=== PATIENT | female | born 1975 | race Caucasian/White ===

== ENCOUNTER 2018-03-01 16:26 | Emergency (ER) | payer OTHER ==
[2018-03-01] MEDS ORDERED: Ketorolac 60 MG/2 ML SDV IM ONE (17:00)
[2018-03-01] MEDS ORDERED: Cyclobenzaprine 10 MG Tab PO ONE (17:00)
--- NOTE | 2018-03-01 17:05 | EDM.PDOC ---
ED HPI GENERAL MEDICAL PROBLEM - General Chief Complaint: Lower Extremity Injury/Pain Stated Complaint: RT HIP PAIN, DOWN THE LEG, TINGLY TOES Time Seen by Provider: 03/01/18 16:53 Source of Information: Reports: Patient, RN Notes Reviewed History Limitations: Reports: No Limitations - History of Present Illness INITIAL COMMENTS - FREE TEXT/NARRATIVE: 42-year-old female presents emergency department day complaint of pain low back hip area she does have chronic issues in this area recently went to physical therapy after physical therapy the pain has been exacerbated has numbness and tingling in her right toe difficulty with ambulation Right Hip Pain Score (Numeric/FACES): 7 Lower Back Pain Score (Numeric/FACES): 4 - Related Data Allergies Allergy/AdvReac Type Severity Reaction Status Date / Time Sulfa (Sulfonamide Allergy Facial Verified 03/01/18 16:39 Antibiotics) Swelling sumatriptan [From Imitrex] Allergy Other Verified 03/01/18 16:39 Home Meds: Home Meds Cyclobenzaprine [Flexeril] 10 mg PO TID PRN #15 tablet 03/01/18 [Rx] Past Medical History HEENT History: Reports: Impaired Vision Cardiovascular History: Reports: Heart Murmur Gastrointestinal History: Reports: Colon Polyp, Hemorrhoids, Hiatal Hernia Musculoskeletal History: Reports: Arthritis, Back Pain, Chronic Neurological History: Reports: Migraines Psychiatric History: Reports: Anxiety - Infectious Disease History Infectious Disease History: Reports: Chicken Pox - Past Surgical History Head Surgeries/Procedures: Reports: None HEENT Surgical History: Reports: Adenoidectomy Cardiovascular Surgical History: Reports: None GI Surgical History: Reports: Appendectomy, Colonoscopy Neurological Surgical History: Reports: None Dermatological Surgical History: Reports: None Social & Family History - Tobacco Use Smoking Status *Q: Current Every Day Smoker Years of Tobacco use: 30 Packs/Tins Daily: 0.5 Used Tobacco, but Quit: No Second Hand Smoke Exposure: No - Caffeine Use Caffeine Use: Reports: Coffee, Soda - Recreational Drug Use Recreational Drug Use: No Review of Systems - Review of Systems Review Of Systems: See Below Constitutional: Reports: No Symptoms Musculoskeletal: Reports: Leg Pain Neurological: Reports: Tingling ED EXAM, GENERAL - Physical Exam Exam: See Below Free Text/Narrative:: Tenderness over the low back but Rx region right side she has difficulty ambulating favors her left Exam Limited By: No Limitations General Appearance: Alert, Mild Distress Course - Vital Signs Last Recorded V/S: Last Vital Signs Temp 97.5 F 03/01/18 16:43 Pulse 87 03/01/18 16:43 Resp 16 03/01/18 16:43 BP 136/85 03/01/18 16:43 Pulse Ox 96 03/01/18 16:43 - Orders/Labs/Meds Orders: Active Orders 24 hr Category Date Time Status Cyclobenzaprine [Flexeril] Med 03/01/18 17:00 Once 10 mg PO ONETIME ONE Ketorolac [Toradol] Med 03/01/18 17:00 Once 60 mg IM ONETIME ONE Medication Orders Cyclobenzaprine HCl (Flexeril) 10 mg PO ONETIME ONE Stop: 03/01/18 17:01 Ketorolac Tromethamine (Toradol) 60 mg IM ONETIME ONE Stop: 03/01/18 17:01 Meds: Medications Generic Name Dose Route Start Last Admin Trade Name Freq PRN Reason Stop Dose Admin Cyclobenzaprine HCl 10 mg 03/01/18 17:00 Flexeril PO 03/01/18 17:01 ONETIME ONE Ketorolac Tromethamine 60 mg 03/01/18 17:00 Toradol IM 03/01/18 17:01 ONETIME ONE Departure - Departure Time of Disposition: 17:04 Disposition: Home, Self-Care 01 Condition: Good Clinical Impression: Right hip pain - Discharge Information Prescriptions: Cyclobenzaprine [Flexeril] 10 mg PO TID PRN #15 tablet PRN Reason: Pain Referrals: PCP,None [Primary Care Provider] - Forms: ED Department Discharge, ED Return to Work/School Form Additional Instructions: Continue using your meloxicam, try the Flexeril as needed for muscle spasm and pain, your prescriptions have been sent to [facility], Please followup with your primary care provider in 3-5 days if not better, please call return to the emergency department with worsening of symptoms. - My Orders Last 24 Hours: My Active Orders 03/01/18 17:00 Cyclobenzaprine [Flexeril] 10 mg PO ONETIME ONE Ketorolac [Toradol] 60 mg IM ONETIME ONE - Assessment/Plan Last 24 Hours: My Active Orders 03/01/18 17:00 Cyclobenzaprine [Flexeril] 10 mg PO ONETIME ONE Ketorolac [Toradol] 60 mg IM ONETIME ONE Plan: Assessment Acuity = acute on chronic Site and laterality = exacerbation left hip pain Etiology = secondary to physical therapy Manifestations = none Location of injury = Home Lab values = none Plan She was provided Toradol and Flexeril in the emergency department with some relief prescription written for Flexeril 1 tab by mouth 3 times a day when necessary total #15 follow-up primary care in 3-5 days if not better prescription sent to [facility] This note was dictated using upad voice recognition software please call with any questions on syntax or grammar.
== END 2018-03-01 17:15 | disposition home or self-care (01) ==
LOC: JP.ED 16:26
DX: G89.29 Other chronic pain (principal); M25.551 Pain in right hip; R20.0 Anesthesia of skin; R20.2 Paresthesia of skin; F17.210 Nicotine dependence, cigarettes, uncomplicated; Z88.2 Allergy status to sulfonamides
CPT/HCPCS: 96372; 99282; 99283; A9270; J1885

== ENCOUNTER 2018-09-01 05:26 | Emergency (ER) | payer OTHER ==
--- NOTE | 2018-09-01 06:14 | EDM.PDOC ---
ED HPI GENERAL MEDICAL PROBLEM - General Chief Complaint: Upper Extremity Injury/Pain Stated Complaint: SMASHED LEFT HAND Time Seen by Provider: 09/01/18 05:53 Source of Information: Reports: Patient History Limitations: Reports: No Limitations - History of Present Illness INITIAL COMMENTS - FREE TEXT/NARRATIVE: Last night this lady was helping another individual move a sofa. The patient was walking I cords when her hand hit a wooden post so this crushed her left hand between the sofa and post. Afterwards she was able to use her hand although it was painful. This morning it's very swollen stiff and hurts more. She is worried it may be broken. left hand Pain Score (Numeric/FACES): 7 - Related Data Allergies Allergy/AdvReac Type Severity Reaction Status Date / Time Sulfa (Sulfonamide Allergy Facial Verified 09/01/18 05:49 Antibiotics) Swelling sumatriptan [From Imitrex] Allergy Other Verified 09/01/18 05:49 Home Meds: Home Meds Meloxicam 7.5 mg PO DAILY 03/01/18 [History] Past Medical History HEENT History: Reports: Impaired Vision Cardiovascular History: Reports: Heart Murmur Gastrointestinal History: Reports: Colon Polyp, Hemorrhoids, Hiatal Hernia Musculoskeletal History: Reports: Arthritis, Back Pain, Chronic Neurological History: Reports: Migraines Psychiatric History: Reports: Anxiety - Infectious Disease History Infectious Disease History: Reports: Chicken Pox - Past Surgical History Head Surgeries/Procedures: Reports: None HEENT Surgical History: Reports: Adenoidectomy Cardiovascular Surgical History: Reports: None GI Surgical History: Reports: Appendectomy, Colonoscopy Neurological Surgical History: Reports: None Musculoskeletal Surgical History: Reports: None Social & Family History - Family History Family Medical History: Noncontributory - Tobacco Use Smoking Status *Q: Current Every Day Smoker Years of Tobacco use: 32 Packs/Tins Daily: 0.5 Second Hand Smoke Exposure: Yes - Caffeine Use Caffeine Use: Reports: Coffee - Recreational Drug Use Recreational Drug Use: No Review of Systems - Review of Systems Review Of Systems: ROS reveals no pertinent complaints other than HPI. ED EXAM, GENERAL - Physical Exam Exam: See Below Exam Limited By: No Limitations General Appearance: Alert, WD/WN, No Apparent Distress Extremities: Other (Left hand shows mild swelling in the area of the third through fifth MCP joints. A little bit of swelling onto the hand and the proximal phalanges of the third through fifth fingers. There is limited range of motion due to pain and swelling but no deformity. Neurovascular tendon all appears to be intact) Course - Vital Signs Last Recorded V/S: Last Vital Signs Temp 36.1 C 09/01/18 05:46 Pulse 77 09/01/18 05:46 Resp 14 09/01/18 05:46 BP 127/86 09/01/18 05:46 Pulse Ox 97 09/01/18 05:46 - Orders/Labs/Meds Orders: Active Orders 24 hr Category Date Time Status Hand Comp Min 3V Lt [CR] Stat Exams 09/01/18 05:59 Taken - Radiology Interpretation Free Text/Narrative:: X-ray the left hand shows no fracture or dislocation Departure - Departure Time of Disposition: 06:12 Disposition: Home, Self-Care 01 Condition: Fair Clinical Impression: Contusion of left hand - Discharge Information Referrals: PCP,None [Primary Care Provider] - Forms: ED Department Discharge Additional Instructions: The hand is just bruised. Nothing is broken. It will help to keep your hand elevated as much as you can the keep it moving at least a little bit. Ice may still help. It should be better over the next 2 or 3 days. You may use it as tolerated - My Orders Last 24 Hours: My Active Orders 09/01/18 05:59 Hand Comp Min 3V Lt [CR] Stat - Assessment/Plan Last 24 Hours: My Active Orders 09/01/18 05:59 Hand Comp Min 3V Lt [CR] Stat
--- NOTE | 2018-09-01 06:22 | CRLCR ---
HISTORY: Left hand trauma. TECHNIQUE: Three views of the left hand. COMPARISON: No prior. FINDINGS: There is no acute fracture or malalignment. No significant joint space narrowing. No radiopaque foreign body or soft tissue gas. Small focus of chronic cystic or erosive change involving the 3rd metacarpal head with a thin sclerotic margin. IMPRESSION: No acute fracture or malalignment. Dictated by Wally Tao MD @ 09/01/2018 6:20:45 AM Dictated by: Wally Tao MD @ 09/01/2018 06:20:48 (Electronically Signed)
== END 2018-09-01 06:28 | disposition home or self-care (01) ==
LOC: JP.ED 05:26
DX: S60.222A Contusion of left hand, initial encounter (principal); F17.210 Nicotine dependence, cigarettes, uncomplicated; F41.9 Anxiety disorder, unspecified; Z88.2 Allergy status to sulfonamides; Z88.8 Allergy status to other drugs, medicaments and biological substances; Z79.899 Other long term (current) drug therapy; W23.0XXA Caught, crushed, jammed, or pinched between moving objects, initial encounter
CPT/HCPCS: 73130-LT; 99282; 99283-25

== ENCOUNTER 2019-02-03 00:55 | Emergency (ER) | payer OTHER ==
[2019-02-03] MEDS ORDERED: Baclofen 10 MG Tab PO ONE (01:44)
[2019-02-03] MEDS ORDERED: Ketorolac 60 MG/2 ML SDV IM ONE (01:44)
--- NOTE | 2019-02-03 01:50 | EDM.PDOC ---
ED HPI GENERAL MEDICAL PROBLEM - General Chief Complaint: Back Pain or Injury Stated Complaint: LOWER BACK PAIN Time Seen by Provider: 02/03/19 01:45 Source of Information: Reports: Patient History Limitations: Reports: No Limitations - History of Present Illness INITIAL COMMENTS - FREE TEXT/NARRATIVE: pt has a known history of disc disease and did have a MRI in 2017. She is followed at the [place]. She was at work tonight and developed acute pain in the low back with pain radiating down the rt leg. She did have tingling in both feet. Onset: Other ( she has had some problems for several days but it got very bad today. ) Location: Reports: Back, Lower Extremity, Right, Radiates to back Pain Score (Numeric/FACES): 8 - Related Data Allergies Allergy/AdvReac Type Severity Reaction Status Date / Time Sulfa (Sulfonamide Allergy Facial Verified 02/03/19 01:14 Antibiotics) Swelling sumatriptan [From Imitrex] Allergy Other Verified 02/03/19 01:14 Home Meds: Home Meds Meloxicam 7.5 mg PO DAILY 03/01/18 [History] Past Medical History HEENT History: Reports: Impaired Vision Cardiovascular History: Reports: Heart Murmur Gastrointestinal History: Reports: Colon Polyp, GERD, Hemorrhoids, Hiatal Hernia Musculoskeletal History: Reports: Arthritis, Back Pain, Chronic Neurological History: Reports: Migraines Psychiatric History: Reports: Anxiety - Infectious Disease History Infectious Disease History: Reports: Chicken Pox - Past Surgical History Head Surgeries/Procedures: Reports: None HEENT Surgical History: Reports: Adenoidectomy, Other (See Below) Other HEENT Surgeries/Procedures: nasal surgery x2 GI Surgical History: Reports: Appendectomy, Colonoscopy, EGD Neurological Surgical History: Reports: None Musculoskeletal Surgical History: Reports: None Dermatological Surgical History: Reports: None Social & Family History - Family History Family Medical History: Noncontributory - Tobacco Use Smoking Status *Q: Current Every Day Smoker Years of Tobacco use: 32 Packs/Tins Daily: 0.5 - Caffeine Use Caffeine Use: Reports: Coffee, Soda - Recreational Drug Use Recreational Drug Use: No ED ROS GENERAL - Review of Systems Review Of Systems: See Below Constitutional: Reports: No Symptoms HEENT: Reports: No Symptoms Respiratory: Reports: No Symptoms Cardiovascular: Reports: No Symptoms Endocrine: Reports: No Symptoms GI/Abdominal: Reports: No Symptoms : Reports: No Symptoms Musculoskeletal: Reports: Other (pain in the lower back radiating to the rt leg. ) Skin: Reports: No Symptoms Neurological: Reports: Tingling ED EXAM,LOWER BACK PAIN/INJURY - Physical Exam Exam: See Below Text/Narrative:: Pt arrived with pain in the lower back and it is radiating down the rt leg. Exam Limited By: No Limitations General Appearance: Alert, Moderate Distress Ears: Normal TMs Nose: Normal Inspection Throat/Mouth: Normal Inspection Head: Atraumatic Neck: Normal Inspection Respiratory/Chest: No Respiratory Distress Cardiovascular: Regular Rate, Rhythm GI/Abdominal: Soft, Non-Tender (Female) Exam: Deferred Rectal (Female) Exam: Deferred Back Exam: Normal Inspection, Muscle Spasm, Paraspinal Tenderness Extremities: Normal Inspection Neurological: Alert, Oriented x 3 Psychiatric: Normal Affect Course - Vital Signs Last Recorded V/S: Last Vital Signs Temp 36.6 C 02/03/19 01:16 Pulse 80 02/03/19 01:16 Resp 18 02/03/19 01:16 BP 124/87 02/03/19 01:16 Pulse Ox 96 02/03/19 01:16 - Orders/Labs/Meds Meds: Medications Discontinued Medications Generic Name Dose Route Start Last Admin Trade Name Freq PRN Reason Stop Dose Admin Hydrocodone Bitart/Acetaminophen 1 tab 02/03/19 01:51 02/03/19 01:57 Bowman 325-5 Mg PO 02/03/19 01:52 1 tab ONETIME ONE Administration Baclofen 10 mg 02/03/19 01:44 02/03/19 01:50 Lioresal PO 02/03/19 01:45 10 mg ONETIME ONE Administration Ketorolac Tromethamine 60 mg 02/03/19 01:44 02/03/19 01:50 Toradol IM 02/03/19 01:45 60 mg ONETIME ONE Administration - Re-Assessments/Exams Free Text/Narrative Re-Assessment/Exam: 02/03/19 01:50 pt was given torodol 60 mg im, baclofen 10 mg and norco 5/325 she did have relief. 02/03/19 02:26 Departure - Departure Time of Disposition: 02:27 Disposition: Home, Self-Care 01 Condition: Fair Clinical Impression: Low back pain - Discharge Information Referrals: PCP,None [Primary Care Provider] - Forms: ED Department Discharge Care Plan Goals: moist warm packs to low back , rest, flexeril 10 mg bid, motrin 600mg bid for 3 -4 day, push fluids, norco 5/325 q6h prn for severe pain # 10
[2019-02-03] MEDS ORDERED: Acetaminophen/HYDROcodone 325-5 MG Tab PO ONE (01:51)
== END 2019-02-03 02:35 | disposition home or self-care (01) ==
LOC: JP.ED 00:55
DX: M54.5 Low back pain (principal); F17.210 Nicotine dependence, cigarettes, uncomplicated; Z88.2 Allergy status to sulfonamides; Z88.8 Allergy status to other drugs, medicaments and biological substances; Z79.899 Other long term (current) drug therapy
CPT/HCPCS: 96372; 99283; A9270; J1885

== ENCOUNTER 2019-05-22 21:17 | Emergency (ER) | payer OTHER ==
--- NOTE | 2019-05-22 21:49 | EDM.PDOC ---
ED HPI GENERAL MEDICAL PROBLEM - General Chief Complaint: Lower Extremity Injury/Pain Stated Complaint: RI KNEE HURTS NOT AN ACCIDENT Time Seen by Provider: 05/22/19 21:35 Source of Information: Reports: Patient, Old Records, RN - History of Present Illness INITIAL COMMENTS - FREE TEXT/NARRATIVE: 43 yo female here with several days of L knee pain not associated with injury. Has not been to her primary. Wants a note to be off work. 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) Right Knee Pain Score (Numeric/FACES): 6 - Related Data Allergies Allergy/AdvReac Type Severity Reaction Status Date / Time Sulfa (Sulfonamide Allergy Facial Verified 02/03/19 01:14 Antibiotics) Swelling sumatriptan [From Imitrex] Allergy Other Verified 02/03/19 01:14 Home Meds: Home Meds NK [No Known Home Meds] 05/22/19 [History] Past Medical History HEENT History: Reports: Impaired Vision Cardiovascular History: Reports: Heart Murmur Gastrointestinal History: Reports: Colon Polyp, GERD, Hemorrhoids, Hiatal Hernia Musculoskeletal History: Reports: Arthritis, Back Pain, Chronic Other Musculoskeletal History: knee pain Neurological History: Reports: Migraines Psychiatric History: Reports: Anxiety - Infectious Disease History Infectious Disease History: Reports: Chicken Pox - Past Surgical History Head Surgeries/Procedures: Reports: None HEENT Surgical History: Reports: Adenoidectomy, Other (See Below) Other HEENT Surgeries/Procedures: nasal surgery x2 GI Surgical History: Reports: Appendectomy, Colonoscopy, EGD Neurological Surgical History: Reports: None Musculoskeletal Surgical History: Reports: None Dermatological Surgical History: Reports: None Social & Family History - Family History Family Medical History: Noncontributory - Tobacco Use Smoking Status *Q: Current Every Day Smoker Years of Tobacco use: 32 Packs/Tins Daily: 0.5 - Caffeine Use Caffeine Use: Reports: Coffee, Soda Caffeine Use Comment: dr mckay daily - Recreational Drug Use Recreational Drug Use: No Review of Systems - Review of Systems Review Of Systems: See Below Constitutional: Reports: No Symptoms Musculoskeletal: Reports: Joint Pain (L medial knee pain, no effusion or ligamentous laxity). Denies: Joint Swelling Skin: Reports: No Symptoms Neurological: Reports: No Symptoms ED EXAM, GENERAL - Physical Exam Exam: See Below General Appearance: Alert, WD/WN, No Apparent Distress Extremities: Normal Inspection, Normal Range of Motion, No Pedal Edema, Other ( no ligament laxity. Medial joint line pain. No effusion.). No: Non-Tender, Joint Swelling, Limited Range of Motion, Increased Warmth Neurological: Alert, Oriented, CN II-XII Intact, Normal Cognition, No Motor/ Sensory Deficits Psychiatric: Normal Affect, Normal Mood Skin Exam: Warm, Dry, Intact, Normal Color, No Rash Course - Vital Signs Text/Narrative:: Immobilizer placed. Last Recorded V/S: Last Vital Signs Temp 37.4 C 05/22/19 21:35 Pulse 91 05/22/19 21:35 Resp 18 05/22/19 21:35 BP 128/82 05/22/19 21:35 Pulse Ox 97 05/22/19 21:35 Departure - Departure Time of Disposition: 21:50 Disposition: Home, Self-Care 01 Condition: Fair Clinical Impression: Left knee pain Qualifiers: Chronicity: unspecified Qualified Code(s): M25.562 - Pain in left knee - Discharge Information *PRESCRIPTION DRUG MONITORING PROGRAM REVIEWED*: No *COPY OF PRESCRIPTION DRUG MONITORING REPORT IN PATIENT DESTINY: No Instructions: Knee Pain, Adult, [id number] Referrals: PCP,None [Primary Care Provider] - Additional Instructions: Use immobilizer except when bathing or sleeping. F/U with orthopedics. Ibuprofen and/or acetaminophen as needed. Sepsis Event Note - Evaluation Sepsis Screening Result: No Definite Risk - Focused Exam Vital Signs: Vital Signs Temp Pulse Resp BP Pulse Ox 05/22/19 21:35 37.4 C 91 18 128/82 97 05/22/19 21:32 37.4 C 91 18 128/82 97 Date Exam was Performed: 05/22/19 Time Exam was Performed: 21:44
== END 2019-05-22 22:14 | disposition home or self-care (01) ==
LOC: JP.ED 21:17
DX: M25.562 Pain in left knee (principal); M19.90 Unspecified osteoarthritis, unspecified site; F17.210 Nicotine dependence, cigarettes, uncomplicated; Z88.2 Allergy status to sulfonamides; Z88.8 Allergy status to other drugs, medicaments and biological substances
CPT/HCPCS: 99283

== ENCOUNTER 2019-06-11 18:46 | Emergency (ER) | payer OTHER ==
--- NOTE | 2019-06-11 19:40 | EDM.PDOC ---
ED HPI GENERAL MEDICAL PROBLEM - General Chief Complaint: Respiratory Problem Stated Complaint: COUGH, CHEST CONGESTION, SOB, FEVER Time Seen by Provider: 06/11/19 19:15 Source of Information: Reports: Patient History Limitations: Reports: No Limitations - History of Present Illness INITIAL COMMENTS - FREE TEXT/NARRATIVE: 43-year-old female with a variety of cold-like symptoms for the past week, generalized body aches, cough, sore throat, runny nose and headache. She gets dyspneic with activity. No nausea or vomiting, no abdominal or urologic symptoms. Onset: Gradual Duration: Day(s): (7 days) Associated Symptoms: Reports: Cough, Fever/Chills, Malaise, Shortness of Breath (Especially with activity), Other (Also complaining of ear pain and throat pain) Generalized Pain Score (Numeric/FACES): 8 - Related Data Allergies Allergy/AdvReac Type Severity Reaction Status Date / Time Sulfa (Sulfonamide Allergy Facial Verified 06/11/19 19:11 Antibiotics) Swelling sumatriptan [From Imitrex] Allergy Other Verified 06/11/19 19:11 Home Meds: Home Meds NK [No Known Home Meds] 05/22/19 [History] Past Medical History HEENT History: Reports: Impaired Vision Cardiovascular History: Reports: Heart Murmur Respiratory History: Reports: None Gastrointestinal History: Reports: Colon Polyp, GERD, Hemorrhoids, Hiatal Hernia Genitourinary History: Reports: None 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: Musculoskeletal History: Reports: Arthritis, Back Pain, Chronic Other Musculoskeletal History: knee pain Neurological History: Reports: Migraines Psychiatric History: Reports: Anxiety Endocrine/Metabolic History: Reports: None Hematologic History: Reports: None Immunologic History: Reports: None Oncologic (Cancer) History: Reports: None Dermatologic History: Reports: None - Infectious Disease History Infectious Disease History: Reports: Chicken Pox - Past Surgical History Head Surgeries/Procedures: Reports: None HEENT Surgical History: Reports: Adenoidectomy, Other (See Below) Other HEENT Surgeries/Procedures: nasal surgery x2 GI Surgical History: Reports: Appendectomy, Colonoscopy, EGD Neurological Surgical History: Reports: None Musculoskeletal Surgical History: Reports: None, Hip Replacement Dermatological Surgical History: Reports: None Social & Family History - Family History Family Medical History: Noncontributory - Tobacco Use Smoking Status *Q: Current Every Day Smoker Years of Tobacco use: 29 Packs/Tins Daily: 0.5 Used Tobacco, but Quit: No Second Hand Smoke Exposure: Yes - Caffeine Use Caffeine Use: Reports: Coffee, Soda Caffeine Use Comment: dr mckay daily - Alcohol Use Days Per Week of Alcohol Use: 0 - Recreational Drug Use Recreational Drug Use: No ED ROS GENERAL - Review of Systems Review Of Systems: See Below Constitutional: Reports: Fever, Chills, Malaise HEENT: Reports: Eye Pain, Throat Pain Respiratory: Reports: Shortness of Breath, Cough. Denies: Sputum GI/Abdominal: Denies: Abdominal Pain, Nausea, Vomiting Musculoskeletal: Reports: Other (Aches all over, generalized muscle pain) Skin: Reports: No Symptoms Neurological: Reports: Headache Psychiatric: Reports: No Symptoms ED EXAM, GENERAL - Physical Exam Exam: See Below Exam Limited By: No Limitations General Appearance: Alert, No Apparent Distress Ears: Normal TMs Throat/Mouth: Normal Inspection Head: Atraumatic Neck: No: Lymphadenopathy (R), Lymphadenopathy (L) Respiratory/Chest: No Respiratory Distress, Wheezing (A few expiratory wheezes are heard especially in the bases bilaterally and more pronounced when coughing) Cardiovascular: Regular Rate, Rhythm GI/Abdominal: Non-Tender Extremities: No: Pedal Edema Neurological: Alert, Oriented Psychiatric: Normal Affect, Normal Mood Skin Exam: Warm, Dry Course - Vital Signs Last Recorded V/S: Last Vital Signs Temp 98.4 F 06/11/19 19:18 Pulse 74 06/11/19 19:18 Resp 16 06/11/19 19:18 BP 140/78 06/11/19 19:18 Pulse Ox 93 L 06/11/19 19:18 - Orders/Labs/Meds Orders: Active Orders 24 hr Category Date Time Status CULTURE STREP A CONFIRMATION [RM] Routine Lab 06/11/19 19:28 Results STREP SCRN A RAPID W CULT CONF [RM] Routine Lab 06/11/19 19:28 Results - Re-Assessments/Exams Free Text/Narrative Re-Assessment/Exam: 06/11/19 19:40 A 2 view chest x-ray will be obtained as well as a strep and influenza antigens. 06/11/19 20:00 Strep and influenza are negative, chest x-ray shows 1 small possible area of infiltrate in the right lateral chest, upper lobe. She will be placed on Zithromax but also advised that it is likely she has a viral component which will have to run its course. No work today or tomorrow. Recheck in 3 to 5 days if not improving satisfactorily. Departure - Departure Time of Disposition: 20:12 Disposition: Home, Self-Care 01 Clinical Impression: Bronchitis - Discharge Information Instructions: Acute Bronchitis, Adult, [id number] Referrals: PCP,None [Primary Care Provider] - Forms: ED Department Discharge Care Plan Goals: Take Zithromax as prescribed, rest and get plenty of fluids. Increase activity as tolerated and consider rechecking in 3 to 5 days if not improving satisfactorily. Sepsis Event Note - Evaluation Sepsis Screening Result: No Definite Risk - Focused Exam Vital Signs: Vital Signs Temp Pulse Resp BP Pulse Ox 06/11/19 19:18 98.4 F 74 16 140/78 93 L 06/11/19 19:10 98.4 F 74 22 H 140/78 93 L Date Exam was Performed: 06/11/19 Time Exam was Performed: 22:23 - My Orders Last 24 Hours: My Active Orders 06/11/19 19:28 CULTURE STREP A CONFIRMATION [RM] Routine STREP SCRN A RAPID W CULT CONF [] Routine - Assessment/Plan Last 24 Hours: My Active Orders 06/11/19 19:28 CULTURE STREP A CONFIRMATION [] Routine STREP SCRN A RAPID W CULT CONF [] Routine
--- NOTE | 2019-06-11 20:03 | CRLCR ---
Indication: Dyspnea. Technique: PA and lateral views the chest. Comparison: None Findings: Subtle right upper lobe infiltrate is identified. The heart is normal in size. No pleural effusion or pneumothorax is identified. Impression: Subtle right upper lobe infiltrate. Repeat study is recommended to ensure complete resolution Dictated by Sandrine Zendejas MD @ Jun 11 2019 8:02PM Signed by Dr. Sandrine Zendejas @ Jun 11 2019 8:02PM
== END 2019-06-11 20:12 | disposition home or self-care (01) ==
LOC: JP.ED 18:46
DX: J40 Bronchitis, not specified as acute or chronic (principal); F17.210 Nicotine dependence, cigarettes, uncomplicated; Z90.49 Acquired absence of other specified parts of digestive tract; Z88.2 Allergy status to sulfonamides; Z88.8 Allergy status to other drugs, medicaments and biological substances
CPT/HCPCS: 71046; 87081; 87804; 87804-59; 87880-QW; 99285-25

== ENCOUNTER 2020-08-03 18:11 | Emergency (ER) | payer BC ==
[2020-08-03] MEDS ORDERED: Albuterol/Ipratropium 3.0-0.5 MG/3 ML Neb Soln NEB ONE (18:56)
--- NOTE | 2020-08-03 19:02 | EDM.PDOC ---
ED HPI GENERAL MEDICAL PROBLEM - General Chief Complaint: Respiratory Problem Stated Complaint: NOT FEELING WELL,FEELS LIKE SOMTHING IS IN CHEST Time Seen by Provider: 08/03/20 18:39 Source of Information: Reports: Patient History Limitations: Reports: No Limitations - History of Present Illness INITIAL COMMENTS - FREE TEXT/NARRATIVE: Mireya is a 44-year-old female presenting to the ED for evaluation of increasing shortness of breath, cough, and chest congestion. Patient states over the last week she has had increasing upper respiratory tract symptoms with nasal congestion and rhinorrhea. By the middle of the week she started having some chest congestion with a productive cough. And now she is experiencing some increased dyspnea and cough. The patient is prone to bronchitis and was treated for acute bronchitis in May 2020. She is a smoker and has a history of smoking induced asthma which was diagnosed when she was in the [employer]. Despite this she continues to smoke although she is motivated to quit. She denies any fever or chills, nausea or vomiting, diarrhea or constipation. She has had no abdominal pain. She is experiencing some low back pain from the repeated coughing and does have a history of chronic back issues. - Related Data Allergies Allergy/AdvReac Type Severity Reaction Status Date / Time Sulfa (Sulfonamide Allergy Facial Verified 08/03/20 18:19 Antibiotics) Swelling sumatriptan [From Imitrex] Allergy Other Verified 08/03/20 18:19 Home Meds: Home Meds NK [No Known Home Meds] 08/03/20 [History] Past Medical History HEENT History: Reports: Impaired Vision Cardiovascular History: Reports: Heart Murmur Respiratory History: Reports: None Gastrointestinal History: Reports: Colon Polyp, GERD, Hemorrhoids, Hiatal Hernia Genitourinary History: Reports: None REGISTRY NURSE History: Reports: Musculoskeletal History: Reports: Other (See Below) Other Musculoskeletal History: right knee pain. left knee pain. right foot pain Neurological History: Reports: Migraines Psychiatric History: Reports: Anxiety Endocrine/Metabolic History: Reports: None Hematologic History: Reports: None Immunologic History: Reports: None Oncologic (Cancer) History: Reports: None Dermatologic History: Reports: None - Infectious Disease History Infectious Disease History: Reports: Chicken Pox - Past Surgical History Head Surgeries/Procedures: Reports: None HEENT Surgical History: Reports: Adenoidectomy, Other (See Below) Other HEENT Surgeries/Procedures: nasal surgery x2 Cardiovascular Surgical History: Reports: None GI Surgical History: Reports: Appendectomy, Colonoscopy, EGD Neurological Surgical History: Reports: None Musculoskeletal Surgical History: Reports: None Dermatological Surgical History: Reports: None Social & Family History - Family History Family Medical History: No Pertinent Family History - Tobacco Use Tobacco Use Status *Q: Current Every Day Tobacco User Years of Tobacco use: 32 Packs/Tins Daily: 0.2 - Caffeine Use Caffeine Use: Reports: Coffee Caffeine Use Comment: dr mckay daily ED ROS GENERAL - Review of Systems Review Of Systems: See Below Constitutional: Reports: No Symptoms HEENT: Reports: Rhinitis, Throat Pain, Other (Nasal drainage) Respiratory: Reports: Shortness of Breath, Cough, Sputum Cardiovascular: Reports: No Symptoms Endocrine: Reports: Fatigue GI/Abdominal: Reports: No Symptoms : Reports: No Symptoms Musculoskeletal: Reports: Back Pain (Cute on chronic low back pain from coughing) Skin: Reports: No Symptoms Neurological: Reports: No Symptoms Psychiatric: Reports: No Symptoms Hematologic/Lymphatic: Reports: No Symptoms Immunologic: Reports: No Symptoms ED EXAM, GENERAL - Physical Exam Exam: See Below Exam Limited By: No Limitations General Appearance: Alert, Mild Distress Eye Exam: Bilateral Eye: EOMI, PERRL Nose: Nasal Swelling, Nasal Drainage Throat/Mouth: Normal Inspection, Normal Lips, Normal Oropharynx, Normal Voice, No Airway Compromise Head: Atraumatic, Normocephalic Neck: Normal Inspection, Supple Respiratory/Chest: No Respiratory Distress, Wheezing (Scant bilateral wheezing) Cardiovascular: Normal Peripheral Pulses, Regular Rate, Rhythm, No Murmur Peripheral Pulses: 2+: Radial (L), Radial (R) GI/Abdominal: Normal Bowel Sounds, Soft, Non-Tender Extremities: Normal Inspection, Normal Range of Motion Neurological: Alert, Oriented, Normal Cognition, No Motor/Sensory Deficits Psychiatric: Normal Affect, Normal Mood Skin Exam: Warm, Dry, Intact, Normal Color Lymphatic: No Adenopathy Course - Vital Signs Last Recorded V/S: Last Vital Signs Temp 36.4 C 08/03/20 18:26 Pulse 85 08/03/20 18:26 Resp 14 08/03/20 18:26 BP 119/78 08/03/20 18:26 Pulse Ox 96 08/03/20 18:26 - Orders/Labs/Meds Orders: Active Orders 24 hr Category Date Time Status RT Aerosol Therapy [RC] ASDIRECTED Care 08/03/20 18:56 Active Chest 2V [CR] Stat Exams 08/03/20 18:39 Taken Labs: Laboratory Tests 08/03/20 08/03/20 Range/Units 18:57 18:57 WBC 6.6 (4.5-11.0) K/uL RBC 4.37 (3.30-5.50) M/uL Hgb 13.0 (12.0-15.0) g/dL Hct 39.8 (36.0-48.0) % MCV 91 (80-98) fL MCH 30 (27-31) pg MCHC 33 (32-36) % Plt Count 333 (150-400) K/uL Neut % (Auto) 54 (36-66) % Lymph % (Auto) 33 (24-44) % [place] % (Auto) 9 H (2-6) % Eos % (Auto) 3 (2-4) % Baso % (Auto) 1 (0-1) % C-Reactive Protein 0.61 H (0.0-0.3) mg/dL Meds: Medications Discontinued Medications Generic Name Dose Route Start Last Admin Trade Name Freq PRN Reason Stop Dose Admin Albuterol/Ipratropium 3 ml 08/03/20 18:56 08/03/20 19:01 Duoneb 3.0-0.5 Mg/3 Ml NEB 08/03/20 18:57 3 ml ONETIME ONE Administration - Re-Assessments/Exams Free Text/Narrative Re-Assessment/Exam: 08/03/20 19:38 I reviewed the labs and chest x-ray on the patient. She has a normal leukocyte count but has slight elevation of her CRP. Her chest x-ray does not show any acute infiltrates. She is a smoker and likely has chronic bronchiectasis. She was treated in May for acute bacterial bronchitis and I think it would be prudent to again repeat the course of antibiotics so we will place her on azithromycin Z-Jono. She is requested an albuterol inhaler which I will also prescribe that may offer her some relief of her shortness of breath. She is fairly motivated at this time to quit smoking and I have advised her to follow-up with her primary care provider to arrange for help with this. Indications return to the ED were discussed and at this time she is suitable for discharge in satisfactory condition. Departure - Departure Time of Disposition: 19:40 Disposition: Home, Self-Care 01 Clinical Impression: Acute bronchitis Qualifiers: Bronchitis organism: unspecified organism Qualified Code(s): J20.9 - Acute bronchitis, unspecified - Discharge Information *PRESCRIPTION DRUG MONITORING PROGRAM REVIEWED*: Not Applicable *COPY OF PRESCRIPTION DRUG MONITORING REPORT IN PATIENT DESTINY: Not Applicable Instructions: Acute Bronchitis, Adult, [id number] Referrals: PCP,None [Primary Care Provider] - Forms: ED Department Discharge Care Plan Goals: I have prescribed you an albuterol inhaler and azithromycin. Please take as directed. Should you develop any worsening shortness of breath, please return to the ED for reevaluation. Sepsis Event Note (ED) - Evaluation Sepsis Screening Result: No Definite Risk - Focused Exam Vital Signs: Vital Signs Temp Pulse Resp BP Pulse Ox 08/03/20 18:26 36.4 C 85 14 119/78 96 - Problem List & Annotations (1) Acute bronchitis SNOMED Code(s): 02644461 Code(s): J20.9 - ACUTE BRONCHITIS, UNSPECIFIED Status: Acute Priority: Medium Current Visit: Yes Qualifiers: Bronchitis organism: unspecified organism Qualified Code(s): J20.9 - Acute bronchitis, unspecified - Problem List Review Problem List Initiated/Reviewed/Updated: Yes - My Orders Last 24 Hours: My Active Orders 08/03/20 18:39 Chest 2V [CR] Stat 08/03/20 18:56 RT Aerosol Therapy [RC] ASDIRECTED - Assessment/Plan Last 24 Hours: My Active Orders 08/03/20 18:39 Chest 2V [CR] Stat 08/03/20 18:56 RT Aerosol Therapy [RC] ASDIRECTED
--- NOTE | 2020-08-05 09:26 | CR ---
CHEST: 2 view CLINICAL HISTORY:Cough and SOB COMPARISON:2020 FINDINGS: The heart size, pulmonary vascularity and hilar structures are normal. No infiltrate effusion or pneumothorax is seen. IMPRESSION: No acute cardiopulmonary process.
== END 2020-08-03 20:03 | disposition home or self-care (01) ==
LOC: JP.ED 18:11
DX: J20.9 Acute bronchitis, unspecified (principal); M54.5 Low back pain; G89.29 Other chronic pain; F17.200 Nicotine dependence, unspecified, uncomplicated; Z88.2 Allergy status to sulfonamides; Z88.8 Allergy status to other drugs, medicaments and biological substances
CPT/HCPCS: 36415; 71046; 71046-26; 85025; 86140; 94640; 99284; 99285-25; J7620-GY

== ENCOUNTER 2021-07-21 19:08 | Emergency (ER) | payer BC, OTHER | END 2021-07-21 20:24 | disposition home or self-care (01) | LOC: JP.ED 19:08 | DX: M65.332 Trigger finger, left middle finger (principal); M77.8 Other enthesopathies, not elsewhere classified; Z88.2 Allergy status to sulfonamides; Z88.8 Allergy status to other drugs, medicaments and biological substances; X50.3XXA Overexertion from repetitive movements, initial encounter | CPT/HCPCS: 99283 ==